=== PATIENT | female | born 1940 | race Caucasian/White ===

== ENCOUNTER → 2017-04-30 | Outpatient (CLI) | payer MEDICARE, OTHER ==
[~2017-04-30] MED LIST: ACET325T14 PO; ACID1TAB3 PO; ALPR-475 PO; LEVO750T26 PO
== END | disposition home or self-care (01) ==
LOC: CARD 15:44
PROVIDERS: ATTEND Family Medicine
DX: R05 Cough (principal)
CPT/HCPCS: 94010